=== PATIENT | male | born 1970 | race American Indian/Alaskan Native ===

== ENCOUNTER 2016-09-27 09:07 | Outpatient (CLI) | payer BC ==
--- NOTE | 2016-10-04 15:34 | Nuclear Medicine Report ---
OCTREOSCAN OCTREOSCAN SPECT History: Abnormal gastrointestinal x-ray. Findings: Whole body planar images and SPECT imaging was performed. 6 mCi of indium-111 was administered. There are no studies for comparison at this facility. There are 2 foci of abnormal uptake in the abdomen. There is a small focus of uptake in the anterior abdomen just to the left of midline at the level of L1 estimated at 2 cm in size. There is a second larger focus of abnormal activity in the lower abdomen to the right of midline at L3 estimated at 5 cm in size. These presumably represent neuroendocrine tumors. There is normal uptake in the liver, spleen, kidneys and soft tissues. Impression: There are 2 areas of uptake in the abdomen concerning for neuroendocrine tumor as outlined above. Please correlate with cross-sectional imaging if available.
== END 2016-09-27 09:08 | disposition home or self-care (01) ==
LOC: NM 09:07
PROVIDERS: ATTEND Internal Medicine Gastroenterology
DX: R93.3 Abnormal findings on diagnostic imaging of other parts of digestive tract (principal)
CPT/HCPCS: 78803; 78804; A9572; A9548